=== PATIENT | female | born 1980 | race Hispanic/Latino ===

== ENCOUNTER 2017-02-05 09:55 | Emergency (ER) | payer OTHER ==
[2017-02-05 10:31] LABS: Bilirubin,Urine NEG (Negative); Blood,Urine NEG (Negative); Ketones,Urine NEG (Negative); Leukocyte Esterase,Urine NEG (Negative); Nitrite,Urine NEG (Negative); Protein,Urine <15 mg/dL mg/dL (Negative); Urobilinogen,Urine < 2.0 mg/dL (<2.0)
[2017-02-05] MEDS ORDERED: ZOFRAN IV ONE ×2 (10:39→12:50)
[2017-02-05] MEDS ORDERED: MORPHINE IV ONE ×3 (10:39→12:49)
[2017-02-05 10:45] LABS: Basophils % (Auto) 0.4 % (0.0-1.8); Eosinophils % (Auto) 0.5 % (0.0-4.3); Hematocrit 39.5 % (30.3-42.9); Hemoglobin 12.9 gm/dl (10.1-14.3); Mean Corpuscular HGB Conc 33 % (30-34); Mean Corpuscular Hemoglobin 30 pg (28-32); Mean Corpuscular Volume 92 fl (79-97); Platelet Count 217 K/mm3 (140-440); Red Blood Count 4.31 M/mm3 (3.65-5.03); Red Cell Distribution Width 14.2 % (13.2-15.2); White Blood Count 11.7 K/mm3 (4.5-11.0)
[2017-02-05 11:03] LABS: Alanine Aminotransferase 19 units/L (7-56); Albumin 4.5 g/dL (3.9-5); Albumin/Globulin Ratio 1.7 %; Alkaline Phosphatase 91 units/L (35-129); Anion Gap 20 mmol/L; BUN/Creatinine Ratio 23.75; Blood Urea Nitrogen 19 mg/dL (7-17); Calcium 9.5 mg/dL (8.4-10.2); Carbon Dioxide 26 mmol/L (22-30); Chloride 97.9 mmol/L (98-107); Glucose 101 mg/dL (65-100); Lipase 25 units/L (13-60); Potassium 4.4 mmol/L (3.6-5.0); Sodium 139 mmol/L (137-145); Total Protein 7.2 g/dL (6.3-8.2)
[2017-02-05] MEDS ORDERED: PEPCID IV ONE (11:13)
--- NOTE | 2017-02-05 11:20 | Emergency Department Report ---
ED Abdominal Pain HPI - General Chief Complaint: Abdominal Pain Stated Complaint: COFFEE GROUND STOOL/ABD PAIN /DIZZINESS /VOMITTING Time Seen by Provider: 02/05/17 10:41 Source: patient Mode of arrival: Ambulatory Limitations: No Limitations - History of Present Illness Initial Comments: 37-year-old female with a history diverticulitis here with complaint of abdominal pain. Patient states that she started having diarrhea this morning accompanied by left lower quadrant pain and then vomiting. Patient currently has epigastric discomfort in addition to left lower quadrant pain. She is a history diverticulitis in the past. She denies any blood in her stool or blood in the vomit. No fevers chills. MD Complaint: abdominal pain Location: LLQ Radiation: epigastric Migration to: L flank Severity scale (0 -10): 10 Quality: cramping, stabbing Consistency: constant Associated Symptoms: denies other symptoms - Related Data Home Medications Medication Instructions Recorded Confirmed Last Taken Bupropion HCl [Wellbutrin XL] 300 mg PO QAM 02/05/17 02/05/17 02/05/17 Escitalopram Oxalate [Lexapro] 20 mg PO DAILY 02/05/17 02/05/17 02/05/17 Ipratropium 0.06% [Atrovent] 2 spray NS Q8HR 02/05/17 02/05/17 Unknown Omeprazole Magnesium [PriLOSEC Otc] 20 mg PO QDAY 02/05/17 02/05/17 02/05/17 Previous Rx's Medication Instructions Recorded Last Taken Type Amoxicillin/K Clav Tab [Augmentin 1 tab PO Q12HR #14 tab 02/05/17 Unknown Rx 875 mg] HYDROcodone/APAP 5-325 [[place] 1 each PO Q6HR PRN #14 tablet 02/05/17 Unknown Rx 5-325 mg TAB] Ondansetron [Zofran Odt] 4 mg PO Q8HR #10 tab.rapdis 02/05/17 Unknown Rx Allergies Allergy/AdvReac Type Severity Reaction Status Date / Time Sulfa (Sulfonamide Allergy Anaphylaxis Verified 02/05/17 10:06 Antibiotics) Latex, Natural Rubber AdvReac Rash Verified 02/05/17 10:06 ED Review of Systems ROS: Stated complaint: COFFEE GROUND STOOL/ABD PAIN /DIZZINESS /VOMITTING Other details as noted in HPI Comment: All other systems reviewed and negative Constitutional: denies: chills, fever Eyes: denies: eye pain, eye discharge, vision change ENT: denies: ear pain, throat pain Respiratory: denies: cough, shortness of breath, wheezing Cardiovascular: denies: chest pain, palpitations Endocrine: no symptoms reported Gastrointestinal: denies: abdominal pain, nausea, diarrhea Genitourinary: denies: urgency, dysuria, discharge Musculoskeletal: denies: back pain, joint swelling, arthralgia Skin: denies: rash, lesions Neurological: denies: headache, weakness, paresthesias Psychiatric: denies: anxiety, depression Hematological/Lymphatic: denies: easy bleeding, easy bruising ED Past Medical Hx - Past Medical History Previous Medical History?: Yes Additional medical history: Colon resection at [facility], Dr. Lester 2014, 2016. Hx GI bleed - Surgical History Past Surgical History?: Yes Additional Surgical History: Colon resection 2014, 2016. Inguinal hernia repair - Social History Smoking Status: Never Smoker Substance Use Type: None - Medications Home Medications: Home Medications Medication Instructions Recorded Confirmed Last Taken Type Amoxicillin/K Clav Tab [Augmentin 1 tab PO Q12HR #14 tab 02/05/17 Unknown Rx 875 mg] Bupropion HCl [Wellbutrin XL] 300 mg PO QAM 02/05/17 02/05/17 02/05/17 History Escitalopram Oxalate [Lexapro] 20 mg PO DAILY 02/05/17 02/05/17 02/05/17 History HYDROcodone/APAP 5-325 [[place] 1 each PO Q6HR PRN #14 tablet 02/05/17 Unknown Rx 5-325 mg TAB] Ipratropium 0.06% [Atrovent] 2 spray NS Q8HR 02/05/17 02/05/17 Unknown History Omeprazole Magnesium [PriLOSEC Otc] 20 mg PO QDAY 02/05/17 02/05/17 02/05/17 History Ondansetron [Zofran Odt] 4 mg PO Q8HR #10 tab.rapdis 02/05/17 Unknown Rx ED Physical Exam - General Limitations: No Limitations General appearance: alert, in no apparent distress - Head Head exam: Present: atraumatic, normocephalic - Eye Eye exam: Present: normal appearance. Absent: scleral icterus, conjunctival injection - ENT ENT exam: Present: mucous membranes moist - Neck Neck exam: Present: normal inspection - Respiratory Respiratory exam: Present: normal lung sounds bilaterally. Absent: respiratory distress - Cardiovascular Cardiovascular Exam: Present: regular rate, normal rhythm, normal heart sounds. Absent: systolic murmur, diastolic murmur, rubs, gallop - GI/Abdominal GI/Abdominal exam: Present: soft, tenderness (left lower quadrant), guarding ( voluntary), normal bowel sounds. Absent: distended, rebound - Extremities Exam Extremities exam: Present: normal inspection - Back Exam Back exam: Present: normal inspection. Absent: tenderness, CVA tenderness (R), CVA tenderness (L) - Neurological Exam Neurological exam: Present: alert, oriented X3 - Psychiatric Psychiatric exam: Present: normal affect, normal mood - Skin Skin exam: Present: warm, dry, intact, normal color. Absent: rash ED Course Vital Signs 02/05/17 02/05/17 02/05/17 10:00 10:30 10:48 Temperature 97.9 F 97.9 F Pulse Rate 82 78 Respiratory 18 16 16 Rate Blood Pressure 107/63 Blood Pressure 104/63 [Left] O2 Sat by Pulse 100 Oximetry ED Medical Decision Making - Lab Data Result diagrams: 02/05/17 10:29 02/05/17 10:29 Laboratory Results - last 24 hr 02/05/17 02/05/17 02/05/17 10:11 10:26 10:29 WBC 11.7 H RBC 4.31 Hgb 12.9 Hct 39.5 MCV 92 MCH 30 MCHC 33 RDW 14.2 Plt Count 217 Lymph % (Auto) 15.3 [place] % (Auto) 6.7 Eos % (Auto) 0.5 Baso % (Auto) 0.4 Lymph # 1.8 [place] # 0.8 Eos # 0.1 Baso # 0.0 Seg Neutrophils % 77.1 H Seg Neutrophils # 9.0 H Sodium Potassium Chloride Carbon Dioxide Anion Gap BUN Creatinine Estimated GFR BUN/Creatinine Ratio Glucose Calcium Total Bilirubin AST ALT Alkaline Phosphatase Total Protein Albumin Albumin/Globulin Ratio Lipase Urine Color Yellow Urine Turbidity Clear Urine pH 5.0 Ur Specific [place] 1.005 Urine Protein <15 mg/dl Urine Glucose (UA) Neg Urine Ketones Neg Urine Blood Neg Urine Nitrite Neg Urine Bilirubin Neg Urine Urobilinogen < 2.0 Ur Leukocyte Esterase Neg Urine WBC (Auto) 1.0 Urine RBC (Auto) 4.0 U Epithel Cells (Auto) < 1.0 Blood Type A POSITIVE 02/05/17 10:29 WBC RBC Hgb Hct MCV MCH MCHC RDW Plt Count Lymph % (Auto) [place] % (Auto) Eos % (Auto) Baso % (Auto) Lymph # [place] # Eos # Baso # Seg Neutrophils % Seg Neutrophils # Sodium 139 Potassium 4.4 Chloride 97.9 L Carbon Dioxide 26 Anion Gap 20 BUN 19 H Creatinine 0.8 Estimated GFR > 60 BUN/Creatinine Ratio 23.75 Glucose 101 H Calcium 9.5 Total Bilirubin 0.40 AST 24 ALT 19 Alkaline Phosphatase 91 Total Protein 7.2 Albumin 4.5 Albumin/Globulin Ratio 1.7 Lipase 25 Urine Color Urine Turbidity Urine pH Ur Specific [place] Urine Protein Urine Glucose (UA) Urine Ketones Urine Blood Urine Nitrite Urine Bilirubin Urine Urobilinogen Ur Leukocyte Esterase Urine WBC (Auto) Urine RBC (Auto) U Epithel Cells (Auto) Blood Type - Medical Decision Making 37-year-old female with a history of diverticulitis with left lower quadrant and epigastric pain. Patient has a slight elevation in white blood cell count. She is tender in the lateral corner. Plan to CT her abdomen treatment with IV fluids and pain medications and will reassess. Slight elevation of white blood cell count but otherwise exam and CT is unremarkable. Discussed with patient and she is improved after several rounds of IV morphine. Plan to treat her with oral pain medications oral antiemetics and will start her on oral Augmentin for 7 days. Portions of this chart were dictated with dictation software. There may be dictation errors contained within this note. Critical care attestation.: If time is entered above; I have spent that time in minutes in the direct care of this critically ill patient, excluding procedure time. ED Disposition Clinical Impression: Abdominal pain Disposition: DC-01 TO HOME OR SELFCARE Is pt being admited?: No Condition: Stable Instructions: Abdominal Pain (ED) Prescriptions: Amoxicillin/K Clav Tab [Augmentin 875 mg] 1 tab PO Q12HR #14 tab HYDROcodone/APAP 5-325 [[place] 5-325 mg TAB] 1 each PO Q6HR PRN #14 tablet PRN Reason: Pain Ondansetron [Zofran Odt] 4 mg PO Q8HR #10 tab.rapdis Forms: Work/School Release Form(ED)
[2017-02-05] MEDS ORDERED: NACL ONE (12:12)
[2017-02-05] MEDS ORDERED: MORPHINE ONE (12:45)
[2017-02-05] MEDS ORDERED: ZOFRAN ONE (12:45)
--- NOTE | 2017-02-05 12:48 | Cat Scan Report ---
CT SCAN OF THE ABDOMEN AND PELVIS WITH CONTRAST: HISTORY: Left lower quadrant abdominal pain, history of diverticulitis. TECHNIQUE: Helical CT in 1.25mm intervals following IV contrast. Sagittal and coronal reconstructions. FINDINGS: Cholecystectomy, hysterectomy and appendectomy changes are suspected. The liver is normal in size and is without focal defect. No gallstones or biliary dilatation are noted. The spleen and pancreas demonstrate a normal size and attenuation with no evidence of abnormal mass. The kidneys are normal in size and position with no evidence of hydronephrosis or mass. The adrenal glands are normal. There is no intestinal obstruction or ascites. Normal appendix. The abdominal aorta is normal. No abnormalities are identified within the retroperitoneum or mesentery. There is no evidence of peritoneal air or fluid. There is no evidence of any abnormal masses or fluid collections within the pelvis. No adenopathy is identified. The bladder is normal. IMPRESSION: Surgical changes. No acute abdominal process. No evidence for diverticulitis.
[2017-02-05 15:32] VITALS: BP 101/69
== END 2017-02-05 16:05 | disposition home or self-care (01) ==
LOC: ED 09:55
DX: R10.32 Left lower quadrant pain (principal); R11.10 Vomiting, unspecified; Z88.2 Allergy status to sulfonamides; Z88.8 Allergy status to other drugs, medicaments and biological substances; Z91.040 Latex allergy status
CPT/HCPCS: 36415; 74177; 80053; 81001; 83690; 84703; 85025; 86850; 86900; 86901; 96374; 96375; 96376; 99284; J2270; J2405; Q9967

== ENCOUNTER 2017-03-17 09:06 | Emergency (ER) | payer OTHER ==
--- NOTE | 2017-03-17 09:52 | Emergency Department Report ---
Chief Complaint: Fall Stated Complaint: HEAD & NECK INJURY/CP Time Seen by Provider: 03/17/17 09:51 - HPI History of Present Illness: Patient here reports that she was at home yesterday and she fell off a tall bed and struck her head. She states she had brief syncope. She states that she blacked out for a small period of time. She said today she still have an headache, neck pain and chest wall pain. She is also complaining of pain to her right foot at great toe. She says she took Zofran and Tylenol this morning that didn't help. Her headache is located to the left side of her head and it is pounding. She is complaining of dizziness. Denies any abdominal or back pain. She reports the fall was accidental. Patient denies any history of heart disease but reports she has cold and resection in 2016 and and history of GI bleed. Also having cranial hernia repair. - ROS Review of Systems: All systems are negative unless stated in HPI above - Exam Vital Signs: Vital Signs 03/17/17 09:20 Temperature 97.8 F Pulse Rate 72 Respiratory 16 Rate Blood Pressure 123/81 O2 Sat by Pulse 100 Oximetry Physical Exam: Gen.: This is a 37-year-old female well-nourished well-developed nontoxic in appearance. CV: S1, S2. Regular rate and rhythm; lungs:CTAB, normal work of breathing, positive chest wall tenderness. Extremity: Right great toe swollen and tender to palpate with decreased range of motion; Mini neurological exam: No facial drooping, speech is clear and fluid , alert and oriented 3. GCS of 15. Neck: Positive C-spine tenderness. MSE screening note: Focused history and physical exam performed. Due to findings the following was ordered:See MDM ED Medical Decision Making - Medical Decision Making MDM: Patient screened by provider in triage area. Appropriate protocol initiated and patient to be seen in main ED by provider ED Disposition for MSE Condition: Stable
--- NOTE | 2017-03-17 10:51 | XRay Report ---
Right foot 3 views: History: Pain to right foot after fall. Findings: No fracture, dislocation or periosteal reaction. No soft tissue calcification. Impression: No evidence of acute fracture.
--- NOTE | 2017-03-17 10:52 | XRay Report ---
Chest 2 views: History: Fall. Findings: Normal cardiomediastinal silhouette. Trachea is midline. No consolidation, pneumothorax or pleural effusion. Impression: No acute cardiopulmonary findings.
--- NOTE | 2017-03-17 11:06 | Cat Scan Report ---
CT HEAD WITHOUT CONTRAST: HISTORY: Head injury, fall. Serial contiguous axial images were obtained through the cranium. Intravenous contrast material was not administered. The ventricles are normal in size and appearance. There is no mass effect or midline shift. No areas of abnormally increased or decreased attenuation are seen. No mass lesion is seen. The mastoid air cells and visualized portions of the sinuses are normal. IMPRESSION: Cranial CT scan within normal limits.
--- NOTE | 2017-03-17 11:07 | Cat Scan Report ---
CT scan cervical spine: History: Fall. Findings: The odontoid process, lateral masses, anterior and posterior arch of atlas of proximal colon appears normal. Normal height of vertebral bodies and intervertebral disc. Normal articular surfaces. No fracture. Normal prevertebral soft tissue. Impression: No evidence of acute fracture.
--- NOTE | 2017-03-17 11:23 | Emergency Department Report ---
ED Fall HPI - General Chief Complaint: Fall Stated Complaint: HEAD & NECK INJURY/CP Time Seen by Provider: 03/17/17 09:51 Source: patient Mode of arrival: Ambulatory - History of Present Illness Initial Comments: 37-year-old female past medical history intussusception as child, GI surgery, GERD presents with complaint of mechanical fall out of bed yesterday. States she fell backward between bed and night table hit her head and had a brief loss of consciousness for a few seconds. Patient is awake alert and oriented 3 states she feels achiness in her neck and anterior chest and her right foot. This fully lucid cooperative and able to answer all my questions accurately. Patient is accompanied by her sister and daughter. Is occurred approximately 24 hours ago. MD Complaint: fall Onset/Timin -: days(s) Fall From: out of bed Fall Witnessed: yes, by family Place Fall Occurred: home Loss of Consciousness: yes, minute(s) (2-5) Prolonged Down Time?: no Symptoms Prior to Fall: none Location: head, neck, chest Location - Extremities: Right: Foot (right great toe) Severity: severe Severity scale (0 -10): 6 Quality: aching Context: other (fell backwards off bed) Associated Symptoms: headache, neck pain, chest paint - Related Data Home Medications Medication Instructions Recorded Confirmed Last Taken Bupropion HCl [Wellbutrin XL] 300 mg PO QAM 02/05/17 02/05/17 02/05/17 Escitalopram Oxalate [Lexapro] 20 mg PO DAILY 02/05/17 02/05/17 02/05/17 Ipratropium 0.06% [Atrovent] 2 spray NS Q8HR 02/05/17 02/05/17 Unknown Omeprazole Magnesium [PriLOSEC Otc] 20 mg PO QDAY 02/05/17 02/05/17 02/05/17 Previous Rx's Medication Instructions Recorded Last Taken Type Amoxicillin/K Clav Tab [Augmentin 1 tab PO Q12HR #14 tab 02/05/17 Unknown Rx 875 mg] HYDROcodone/APAP 5-325 [[place] 1 each PO Q6HR PRN #14 tablet 02/05/17 Unknown Rx 5-325 mg TAB] Ondansetron [Zofran Odt] 4 mg PO Q8HR #10 tab.rapdis 02/05/17 Unknown Rx Acetaminophen [Acetaminophen TAB] 500 mg PO Q6HR PRN #30 tablet 03/17/17 Unknown Rx Methocarbamol [Robaxin TAB] 750 mg PO Q8H PRN #15 tablet 03/17/17 Unknown Rx Ondansetron [Zofran Odt] 4 mg PO Q4H PRN #15 tab.rapdis 03/17/17 Unknown Rx traMADol [Ultram 50 MG tab] 50 mg PO Q6HR PRN #14 tablet 03/17/17 Unknown Rx Allergies Allergy/AdvReac Type Severity Reaction Status Date / Time Sulfa (Sulfonamide Allergy Anaphylaxis Verified 02/05/17 10:06 Antibiotics) Latex, Natural Rubber AdvReac Rash Verified 02/05/17 10:06 ED Review of Systems ROS: Stated complaint: HEAD & NECK INJURY/CP Other details as noted in HPI Constitutional: denies: chills, fever Eyes: denies: eye pain, eye discharge, vision change ENT: denies: ear pain, throat pain Respiratory: denies: cough, shortness of breath, wheezing Cardiovascular: chest pain. denies: palpitations Endocrine: no symptoms reported Gastrointestinal: denies: abdominal pain, nausea, diarrhea Genitourinary: denies: urgency, dysuria, discharge Musculoskeletal: as per HPI. denies: back pain, joint swelling, arthralgia Skin: denies: rash, lesions Neurological: as per HPI, headache. denies: weakness, paresthesias Psychiatric: denies: anxiety, depression Hematological/Lymphatic: denies: easy bleeding, easy bruising ED Past Medical Hx - Past Medical History Previous Medical History?: Yes Additional medical history: Colon resection at [facility], Dr. Lester 2014, 2016. Hx GI bleed - Surgical History Past Surgical History?: Yes Additional Surgical History: Colon resection 2014, 2016. Inguinal hernia repair - Social History Smoking Status: Never Smoker Substance Use Type: None - Medications Home Medications: Home Medications Medication Instructions Recorded Confirmed Last Taken Type Amoxicillin/K Clav Tab [Augmentin 1 tab PO Q12HR #14 tab 02/05/17 Unknown Rx 875 mg] Bupropion HCl [Wellbutrin XL] 300 mg PO QAM 02/05/17 02/05/17 02/05/17 History Escitalopram Oxalate [Lexapro] 20 mg PO DAILY 02/05/17 02/05/17 02/05/17 History HYDROcodone/APAP 5-325 [[place] 1 each PO Q6HR PRN #14 tablet 02/05/17 Unknown Rx 5-325 mg TAB] Ipratropium 0.06% [Atrovent] 2 spray NS Q8HR 02/05/17 02/05/17 Unknown History Omeprazole Magnesium [PriLOSEC Otc] 20 mg PO QDAY 02/05/17 02/05/17 02/05/17 History Ondansetron [Zofran Odt] 4 mg PO Q8HR #10 tab.rapdis 02/05/17 Unknown Rx Acetaminophen [Acetaminophen TAB] 500 mg PO Q6HR PRN #30 tablet 03/17/17 Unknown Rx Methocarbamol [Robaxin TAB] 750 mg PO Q8H PRN #15 tablet 03/17/17 Unknown Rx Ondansetron [Zofran Odt] 4 mg PO Q4H PRN #15 tab.rapdis 03/17/17 Unknown Rx traMADol [Ultram 50 MG tab] 50 mg PO Q6HR PRN #14 tablet 03/17/17 Unknown Rx ED Physical Exam - General Limitations: No Limitations General appearance: alert, in no apparent distress - Head Head exam: Present: atraumatic, normocephalic - Eye Eye exam: Present: normal appearance, PERRL, EOMI - ENT ENT exam: Present: mucous membranes moist - Neck Neck exam: Present: normal inspection, full ROM (neck flexion extension lateral rotation and lateral flexion fully intact on exam) - Respiratory Respiratory exam: Present: normal lung sounds bilaterally. Absent: respiratory distress - Cardiovascular Cardiovascular Exam: Present: regular rate, normal rhythm. Absent: systolic murmur, diastolic murmur, rubs, gallop - GI/Abdominal GI/Abdominal exam: Present: soft (abdomen soft nontender nondistended all 4 quadrants), normal bowel sounds - Extremities Exam Extremities exam: Present: normal inspection - Expanded Lower Extremity Exam Right Ankle exam: Present: normal inspection, full ROM Foot/Toe exam: Present: tenderness (patient has some tenderness at distal right great toe with slight ecchymosis of tip of toe) - Back Exam Back exam: Present: normal inspection - Neurological Exam Neurological exam: Present: alert, oriented X3, CN II-XII intact, normal gait - Expanded Neurological Exam Expanded Patient oriented to: Present: person, place, time Cranial nerves: EOM's Intact: Normal, Facial Sensation: Normal Cerebellar function: Finger to Nose: Normal, Heel to [place]: Normal, [place]: Normal Sensory exam: Upper Extremity Light Touch: Normal, Lower Extremity Light Touch: Normal Motor strength exam: RUE: 5, LUE: 5, RLE: 5, LLE: 5 DTR: bicep (R): 3+, bicep (L): 3+, tricep (R): 3+, tricep (L): 3+, knee (R): 3+ , knee (L): 3+, ankle (R): 3+, ankle (L): 3+ Best Eye Response ([place]): (4) open spontaneously Best Motor Response ([place]): (6) obeys commands Best Verbal Response ([place]): (5) oriented [place] Total: 15 - Psychiatric Psychiatric exam: Present: normal affect, normal mood - Skin Skin exam: Present: warm, dry, intact, normal color. Absent: rash ED Course Vital Signs 03/17/17 03/17/17 09:20 13:22 Temperature 97.8 F Pulse Rate 72 76 Respiratory 16 16 Rate Blood Pressure 123/81 Blood Pressure 114/77 [Left] O2 Sat by Pulse 100 100 Oximetry ED Medical Decision Making - Lab Data Result diagrams: 03/17/17 11:11 03/17/17 11:11 - Medical Decision Making A/P: Minor head injury, mechanical fall, concussion 1-x-rays unremarkable, CT head and neck noncontrast unremarkable no signs of acute trauma. Cranial nerves I through XII grossly intact, patient is ambulatory with 5 out of 5 strength in both upper and lower extremities. 2-discussed case with the ED attending before discharging the patient 3-short course Tylenol and Ultram when necessary, Robaxin when necessary 4-follow up with primary care doctor, post concussion precautions. Patient will be driven home by family members who are with her at bedside 5- labs unremarkable 6- patient and family members given precautions on post concussion syndrome, instructed to return to the ED for any worsened headache confusion, lethargy, chest pain, shortness of breath, abdominal pain, inability to tolerate by mouth , paresthesias, inability to ambulate. Patient's family members agreed to keep a close eye on her over next several days and seek out medical evaluation if she develops any of these symptoms 5- pt independently ambulatory without assistance upon discharge Critical care attestation.: If time is entered above; I have spent that time in minutes in the direct care of this critically ill patient, excluding procedure time. ED Disposition Clinical Impression: Minor head trauma, Neck pain, Chest wall pain, Toe pain, right, Multiple contusions Concussion Qualifiers: Encounter type: initial encounter Loss of consciousness presence/duration: with LOC of 30 min or less Qualified Code(s): S06.0X1A - Concussion with loss of consciousness of 30 minutes or less, initial encounter Disposition: TO HOME OR SELFCARE Is pt being admited?: No Does the pt Need Aspirin: No Condition: Stable Instructions: Chest Pain (ED), Concussion (ED), Minor Head Injury (ED), Contusion in Adults (ED), Post Concussion Syndrome (ED) Prescriptions: Acetaminophen [Acetaminophen TAB] 500 mg PO Q6HR PRN #30 tablet PRN Reason: Pain Methocarbamol [Robaxin TAB] 750 mg PO Q8H PRN #15 tablet PRN Reason: Muscle Spasm Ondansetron [Zofran Odt] 4 mg PO Q4H PRN #15 tab.rapdis PRN Reason: Nausea traMADol [Ultram 50 MG tab] 50 mg PO Q6HR PRN #14 tablet PRN Reason: Pain Referrals: ANNAMARIA TIRADO MD [Staff Physician] - 3-5 Days Forms: Accompanied Note, Work/School Release Form(ED) Time of Disposition: 13:02
[2017-03-17] MEDS ORDERED: TORADOL IM ONE (11:39)
[2017-03-17] MEDS ORDERED: ZOFRAN ODT PO ONE (11:40)
[2017-03-17 11:54] LABS: Urine Drugs of Abuse Note Disclamer
[2017-03-17 11:57] LABS: Alanine Aminotransferase 48 units/L (7-56); Albumin 4.2 g/dL (3.9-5); Albumin/Globulin Ratio 1.7 %; Alkaline Phosphatase 109 units/L (35-129); Anion Gap 16 mmol/L; BUN/Creatinine Ratio 22; Blood Urea Nitrogen 13 mg/dL (7-17); Calcium 9.3 mg/dL (8.4-10.2); Carbon Dioxide 27 mmol/L (22-30); Chloride 103.1 mmol/L (98-107); Glucose 91 mg/dL (65-100); Potassium 4.3 mmol/L (3.6-5.0); Sodium 142 mmol/L (137-145); Total Protein 6.7 g/dL (6.3-8.2)
[2017-03-17 11:58] LABS: Creatine Kinase 336 units/L (30-135)
[2017-03-17 12:00] LABS: Basophils % (Auto) 0.6 % (0.0-1.8); Eosinophils % (Auto) 1.3 % (0.0-4.3); Hematocrit 35.5 % (30.3-42.9); Mean Corpuscular HGB Conc 34 % (30-34); Mean Corpuscular Hemoglobin 30 pg (28-32); Mean Corpuscular Volume 90 fl (79-97); Platelet Count 259 K/mm3 (140-440); Red Blood Count 3.96 M/mm3 (3.65-5.03); Red Cell Distribution Width 15.7 % (13.2-15.2); White Blood Count 6.6 K/mm3 (4.5-11.0)
[2017-03-17 12:12] LABS: Bilirubin,Urine NEG (Negative); Blood,Urine NEG (Negative); Ketones,Urine NEG (Negative); Leukocyte Esterase,Urine NEG (Negative); Nitrite,Urine NEG (Negative); Protein,Urine <15 mg/dL mg/dL (Negative); Urobilinogen,Urine < 2.0 mg/dL (<2.0)
[2017-03-17 13:24] VITALS: BP 114/77
== END 2017-03-17 13:24 | disposition home or self-care (01) ==
LOC: ED 09:06
DX: S06.0X1A Concussion with loss of consciousness of 30 minutes or less, initial encounter (principal); M79.674 Pain in right toe(s); R07.89 Other chest pain; M54.2 Cervicalgia; Z88.2 Allergy status to sulfonamides; Z91.040 Latex allergy status; W06.XXXA Fall from bed, initial encounter; Y93.89 Activity, other specified; Y92.89 Other specified places as the place of occurrence of the external cause; Y99.8 Other external cause status
CPT/HCPCS: 36415; 70450; 71020; 72125; 73630; 80053; 80307; 81001; 82550; 84484; 84703; 85025; 86850; 86900; 86901; 93005; 93010; 96372; 99284; G0480; J1885; 80320; Q0162

== ENCOUNTER 2017-03-28 11:46 | Emergency (ER) | payer OTHER ==
[2017-03-28 12:36] VITALS: BP 114/81
[2017-03-28 13:25] LABS: Basophils % (Auto) 0.3 % (0.0-1.8); Eosinophils % (Auto) 0.4 % (0.0-4.3); Hematocrit 37.1 % (30.3-42.9); Hemoglobin 12.3 gm/dl (10.1-14.3); Mean Corpuscular HGB Conc 33 % (30-34); Mean Corpuscular Hemoglobin 30 pg (28-32); Mean Corpuscular Volume 89 fl (79-97); Platelet Count 243 K/mm3 (140-440); Red Blood Count 4.17 M/mm3 (3.65-5.03)
[2017-03-28 13:54] LABS: Anion Gap 23 mmol/L; BUN/Creatinine Ratio 25; Blood Urea Nitrogen 15 mg/dL (7-17); Carbon Dioxide 24 mmol/L (22-30); Chloride 100.3 mmol/L (98-107); Glucose 102 mg/dL (65-100); Potassium 4.6 mmol/L (3.6-5.0); Sodium 143 mmol/L (137-145)
== END 2017-03-28 13:45 | disposition left against medical advice (07) ==
LOC: ED 11:46
DX: R07.9 Chest pain, unspecified (principal); Z53.21 Procedure and treatment not carried out due to patient leaving prior to being seen by health care provider
CPT/HCPCS: 36415; 80048; 84484; 85025; 85379; 93005; 93010

== ENCOUNTER 2017-09-04 10:10 | Emergency (ER) | payer OTHER ==
--- NOTE | 2017-09-04 11:43 | XRay Report ---
ROUTINE CHEST, TWO VIEWS: HISTORY: Shortness of breath. The trachea, heart, mediastinal contour, lung oakley and bony thorax are unremarkable. IMPRESSION: Unremarkable chest x-ray.
[2017-09-04 11:54] LABS: BUN/Creatinine Ratio 15; Blood Urea Nitrogen 9 mg/dL (7-17); Calcium 9.4 mg/dL (8.4-10.2); Hemolysis Index 14
[2017-09-04 12:21] LABS: Basophils % (Auto) 0.4 % (0.0-1.8); Eosinophils # (Auto) 0.1 K/mm3 (0.0-0.4); Eosinophils % (Auto) 0.7 % (0.0-4.3); Hematocrit 39.9 % (30.3-42.9); Hemoglobin 13.1 gm/dl (10.1-14.3); Lymphocytes # (Auto) 1.7 K/mm3 (1.2-5.4); Lymphocytes % (Auto) 23.5 % (13.4-35.0); Mean Corpuscular HGB Conc 33 % (30-34); Mean Corpuscular Hemoglobin 31 pg (28-32); Mean Corpuscular Volume 94 fl (79-97); Monocytes # (Auto) 0.5 K/mm3 (0.0-0.8); Monocytes % (Auto) 6.5 % (0.0-7.3); Platelet Count 292 K/mm3 (140-440); Red Blood Count 4.26 M/mm3 (3.65-5.03); Red Cell Distribution Width 14.2 % (13.2-15.2)
[2017-09-04] MEDS ORDERED: TORADOL IM ONE (14:59)
[2017-09-04] MEDS ORDERED: PERCOCET 5/325 PO ONE (14:59)
--- NOTE | 2017-09-04 16:46 | XRay Report ---
FINAL REPORT EXAM: XR KNEE 3V LT HISTORY: knee pain TECHNIQUE: 3 views of the left knee PRIORS: None. FINDINGS: There is no radiographic evidence of definite acute fracture or dislocation. No definite misalignment. No evidence of osseous lesion. Joint spaces are maintained. No evidence of synovial joint effusion. There is no evidence of significant arthrosis. IMPRESSION: No acute skeletal pathology
--- NOTE | 2017-09-04 17:06 | Emergency Department Report ---
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 Apparently she called her orthopedic doctor and was advised to come to the ER for evaluation and to consider possible blood clot. Patient has a history of T1 through T3 fracture which she sustained after a fall down the stairs April. Because of this chronic pain she does not move around a whole lot. Patient has had pain to her left knee and lateral left calf with swelling for the past 2 days. Today she developed anterior sternal chest pain described as a pressure that is constant and worse with deep inspiration. Positive associated shortness of breath due to pain with inspiration. Patient denies recent travel, cough, fever, or recent trauma/injury. She also thinks she has a swollen lymph node to her left inguinal area. Patient has advised to seek pain management nurse by Dr. Wilson her orthopedic surgeon Severity scale (0 -10): 4 - Related Data Home Medications Medication Instructions Recorded Confirmed Last Taken Bupropion HCl [Wellbutrin XL] 300 mg PO QAM 02/05/17 02/05/17 02/05/17 Escitalopram Oxalate [Lexapro] 20 mg PO DAILY 02/05/17 02/05/17 02/05/17 Ipratropium 0.06% [Atrovent] 2 spray NS Q8HR 02/05/17 02/05/17 Unknown Omeprazole Magnesium [PriLOSEC Otc] 20 mg PO QDAY 02/05/17 02/05/17 02/05/17 Previous Rx's Medication Instructions Recorded Last Taken Type Amoxicillin/K Clav Tab [Augmentin 1 tab PO Q12HR #14 tab 02/05/17 Unknown Rx 875 mg] HYDROcodone/APAP 5-325 [[place] 1 each PO Q6HR PRN #14 tablet 02/05/17 Unknown Rx 5-325 mg TAB] Ondansetron [Zofran Odt] 4 mg PO Q8HR #10 tab.rapdis 02/05/17 Unknown Rx Acetaminophen [Acetaminophen TAB] 500 mg PO Q6HR PRN #30 tablet 03/17/17 Unknown Rx Methocarbamol [Robaxin TAB] 750 mg PO Q8H PRN #15 tablet 03/17/17 Unknown Rx Ondansetron [Zofran Odt] 4 mg PO Q4H PRN #15 tab.rapdis 03/17/17 Unknown Rx traMADol [Ultram 50 MG tab] 50 mg PO Q6HR PRN #14 tablet 03/17/17 Unknown Rx Ibuprofen [Motrin] 800 mg PO Q8HR PRN #30 tablet 09/04/17 Unknown Rx Oxycodone HCl/Acetaminophen 1 each PO Q6HR PRN #12 tablet 09/04/17 Unknown Rx [Percocet 7.5/325 mg] Allergies Allergy/AdvReac Type Severity Reaction Status Date / Time Sulfa (Sulfonamide Allergy Anaphylaxis Verified 02/05/17 10:06 Antibiotics) Latex, Natural Rubber AdvReac Rash Verified 02/05/17 10:06 ED Review of Systems ROS: Stated complaint: BACK PAIN Other details as noted in HPI Comment: All other systems reviewed and negative ED Past Medical Hx - Past Medical History Previous Medical History?: Yes Additional medical history: Colon resection at [facility], Dr. Lester 2014, 2016. Hx GI bleed, Back pain - Surgical History Past Surgical History?: Yes Additional Surgical History: Colon resection 2014, 2016. Inguinal hernia repair - Social History Smoking Status: Former Smoker Substance Use Type: Alcohol, Prescribed - Medications Home Medications: Home Medications Medication Instructions Recorded Confirmed Last Taken Type Amoxicillin/K Clav Tab [Augmentin 1 tab PO Q12HR #14 tab 02/05/17 Unknown Rx 875 mg] Bupropion HCl [Wellbutrin XL] 300 mg PO QAM 02/05/17 02/05/17 02/05/17 History Escitalopram Oxalate [Lexapro] 20 mg PO DAILY 02/05/17 02/05/17 02/05/17 History HYDROcodone/APAP 5-325 [[place] 1 each PO Q6HR PRN #14 tablet 02/05/17 Unknown Rx 5-325 mg TAB] Ipratropium 0.06% [Atrovent] 2 spray NS Q8HR 02/05/17 02/05/17 Unknown History Omeprazole Magnesium [PriLOSEC Otc] 20 mg PO QDAY 02/05/17 02/05/17 02/05/17 History Ondansetron [Zofran Odt] 4 mg PO Q8HR #10 tab.rapdis 02/05/17 Unknown Rx Acetaminophen [Acetaminophen TAB] 500 mg PO Q6HR PRN #30 tablet 03/17/17 Unknown Rx Methocarbamol [Robaxin TAB] 750 mg PO Q8H PRN #15 tablet 03/17/17 Unknown Rx Ondansetron [Zofran Odt] 4 mg PO Q4H PRN #15 tab.rapdis 03/17/17 Unknown Rx traMADol [Ultram 50 MG tab] 50 mg PO Q6HR PRN #14 tablet 03/17/17 Unknown Rx Ibuprofen [Motrin] 800 mg PO Q8HR PRN #30 tablet 09/04/17 Unknown Rx Oxycodone HCl/Acetaminophen 1 each PO Q6HR PRN #12 tablet 09/04/17 Unknown Rx [Percocet 7.5/325 mg] ED Physical Exam - General Limitations: No Limitations - Other Other exam information: General: No limitations, patient is alert in no acute distress Head exam: Atraumatic, normocephalic Eyes exam: Normal appearance ENT: Moist mucous membrane, normal oropharynx Neck exam: Normal inspection, full range of motion, Respiratory exam: Clear to auscultation bilateral, no wheezes, rales, crackles. Sternum nontender Cardiovascular: Normal rate and rhythm, normal heart sounds Abdomen: Soft, nondistended, and nontender, with normal bowel sounds, no rebound, or guarding Extremity: Full range of motion, left mild diffuse knee pain without erythema or warmth possible small effusion. Tenderness to calf without leg asymmetry. 2 + DP pulses equal bilaterally. No warmth to leg with palpation Back: Normal Inspection, full range of motion, upper thoracic back pain Neurologic: Alert, oriented x3, cranial nerves intact, no motor or sensory deficit Psychiatric: normal affect, normal mood Skin: Warm, dry, intact ED Course Vital Signs 09/04/17 09/04/17 09/04/17 11:06 15:10 15:15 Temperature 98.9 F Pulse Rate 86 74 Respiratory 18 20 Rate Blood Pressure 116/81 Blood Pressure 118/75 [Left] O2 Sat by Pulse 96 90 93 Oximetry 09/04/17 09/04/17 09/04/17 15:16 15:20 15:26 Temperature Pulse Rate Respiratory Rate Blood Pressure 108/65 108/65 108/65 Blood Pressure [Left] O2 Sat by Pulse 100 99 100 Oximetry 09/04/17 09/04/17 09/04/17 15:30 15:36 15:41 Temperature Pulse Rate Respiratory Rate Blood Pressure 108/65 108/65 109/66 Blood Pressure [Left] O2 Sat by Pulse 96 100 97 Oximetry 09/04/17 09/04/17 09/04/17 15:47 15:51 15:55 Temperature Pulse Rate Respiratory Rate Blood Pressure 108/65 108/65 108/65 Blood Pressure [Left] O2 Sat by Pulse 95 98 97 Oximetry 09/04/17 09/04/17 09/04/17 16:00 16:07 16:11 Temperature Pulse Rate Respiratory Rate Blood Pressure 107/64 109/66 109/66 Blood Pressure [Left] O2 Sat by Pulse 100 99 98 Oximetry 09/04/17 09/04/17 09/04/17 16:15 16:21 16:25 Temperature Pulse Rate Respiratory Rate Blood Pressure 109/66 109/66 109/66 Blood Pressure [Left] O2 Sat by Pulse 96 97 98 Oximetry 09/04/17 16:31 Temperature 98.2 F Pulse Rate Respiratory Rate Blood Pressure Blood Pressure [Left] O2 Sat by Pulse Oximetry - Reevaluation(s) Reevaluation #1: 09/04/17 17:13 After Percocet 10 mg and Toradol patient continues to have pain. Requesting addition meds. Dilaudid IM/zofran odt ordered - Consultations Consultation #1: 09/04/17 Results and presentation were discussed with Dr. Wilson who did not directly speak to the patient today prior to arrival. She is aware the patient in that she has been referred to pain management. She was informed that ED workup was unremarkable and she will be discharged to continue his follow up with Dr wilson ED Medical Decision Making - Lab Data Result diagrams: 09/04/17 11:22 09/04/17 11:22 Lab Results 09/04/17 09/04/17 09/04/17 Range/Units 11:22 11:22 11:22 WBC 7.1 (4.5-11.0) K/mm3 RBC 4.26 (3.65-5.03) M/mm3 Hgb 13.1 (10.1-14.3) gm/dl Hct 39.9 (30.3-42.9) % MCV 94 (79-97) fl MCH 31 (28-32) pg MCHC 33 (30-34) % RDW 14.2 (13.2-15.2) % Plt Count 292 (140-440) K/mm3 Lymph % (Auto) 23.5 (13.4-35.0) % [place] % (Auto) 6.5 (0.0-7.3) % Eos % (Auto) 0.7 (0.0-4.3) % Baso % (Auto) 0.4 (0.0-1.8) % Lymph # 1.7 (1.2-5.4) K/mm3 [place] # 0.5 (0.0-0.8) K/mm3 Eos # 0.1 (0.0-0.4) K/mm3 Baso # 0.0 (0.0-0.1) K/mm3 Seg Neutrophils % 68.9 (40.0-70.0) % Seg Neutrophils # 4.9 (1.8-7.7) K/mm3 D-Dimer 198.17 (0-234) ng/mlDDU Sodium 139 (137-145) mmol/L Potassium 4.6 (3.6-5.0) mmol/L Chloride 100.5 (98-107) mmol/L Carbon Dioxide 27 (22-30) mmol/L Anion Gap 16 mmol/L BUN 9 (7-17) mg/dL Creatinine 0.6 L (0.7-1.2) mg/dL Estimated GFR > 60 ml/min BUN/Creatinine Ratio 15 % Glucose 100 (65-100) mg/dL Calcium 9.4 (8.4-10.2) mg/dL Troponin T < 0.010 (0.00-0.029) ng/mL - EKG Data -: EKG Interpreted by [place] EKG shows normal: sinus rhythm, ST-T waves (no stemi/t inv) Rate: normal (74) - Radiology Data Radiology results: report reviewed Chest x-ray: No acute finding Left leg Doppler: No DVT but possible knee effusion - Medical Decision Making Symptoms atypical for cardiac related pain, normal EKG, no significant risk factors for CAD, and negative troponin. D-dimer is also negative the patient is to receive an ultrasound of the symptomatic leg that was negative. Because this in the d-dimer is negative further imaging of the chest was not obtained. Vision has left leg/knee pain with effusion noted on ultrasound. X-ray unremarkable. She will be sent home with pain medication and to be further evaluated by her orthopedic doctor. - Differential Diagnosis fracture, PE, costochondritis, pleurisy, DVT, arthritis, effusion Critical Care Time: No Critical care attestation.: If time is entered above; I have spent that time in minutes in the direct care of this critically ill patient, excluding procedure time. ED Disposition Clinical Impression: Atypical chest pain, Knee effusion, left, Leg pain, left Disposition: - TO HOME OR SELFCARE Is pt being admited?: No Does the pt Need Aspirin: No Condition: Stable Instructions: Chest Pain (ED), Knee Effusion (ED) Additional Instructions: Taken medication as prescribed. Follow-up with your orthopedic doctor. Return if symptoms worsen Prescriptions: Ibuprofen [Motrin] 800 mg PO Q8HR PRN #30 tablet PRN Reason: Pain Oxycodone HCl/Acetaminophen [Percocet 7.5/325 mg] 1 each PO Q6HR PRN #12 tablet PRN Reason: Pain Referrals: DIEGO STAHL MD [Primary Care Provider] - 3-5 Days LESVIA WILSON MD [Staff Physician] - 3-5 Days Time of Disposition: 18:30
[2017-09-04] MEDS ORDERED: ZOFRAN ODT PO ONE (17:13)
[2017-09-04] MEDS ORDERED: DILAUDID IM ONE (17:13)
[2017-09-04 18:58] VITALS: BP 110/66
== END 2017-09-04 19:00 | disposition home or self-care (01) ==
LOC: ED 10:10
DX: M25.462 Effusion, left knee (principal); R07.89 Other chest pain
CPT/HCPCS: 36415; 71046; 73562; 80048; 84484; 85025; 85379; 93005; 93010; 93971; 96372; 99284; J1170; J1885; Q0162